=== PATIENT | female | born 1935 | race Two or more races ===

== ENCOUNTER 2017-04-12 15:57 | Emergency (ER) | payer MEDICARE, OTHER ==
[~2017-04-12] VITALS: Ht 160 cm; Wt 115.2 kg
[~2017-04-12 15:57] MED LIST: CANA300T PO; CYAN10009 PO; FLUO-120 PO; GABA-532 PO; OMEP20TA20 PO; PRAV40TA PO; SERT100T PO; SUMA100T16 PO; VALS80TA2 PO
[2017-04-12] MEDS ORDERED: HYDROCODONE/APAP 5-325MG TABLET PO ONE (17:15)
--- NOTE | 2017-04-12 17:15 | NUR ---
Patient discharged to home in stable conditon. Written and verbal after care instructions given. Patient verbalizes understanding of instructions.
[2017-04-12 17:16] VITALS: BP 139/74
== END 2017-04-12 17:20 | disposition home or self-care (01) ==
LOC: ER 16:00
DX: S20.212A Contusion of left front wall of thorax, initial encounter (principal); E11.9 Type 2 diabetes mellitus without complications; F32.9 Major depressive disorder, single episode, unspecified; I10 Essential (primary) hypertension; K21.9 Gastro-esophageal reflux disease without esophagitis; Z79.899 Other long term (current) drug therapy; W01.0XXA Fall on same level from slipping, tripping and stumbling without subsequent striking against object, initial encounter; Y93.89 Activity, other specified; Y92.481 Parking lot as the place of occurrence of the external cause; Y99.8 Other external cause status
CPT/HCPCS: 71020; A4663

== ENCOUNTER 2018-01-28 19:51 | Emergency (ER) | payer MEDICARE, OTHER ==
[~2018-01-28] VITALS: Ht 157.5 cm; Wt 68.0 kg
[2018-01-28] MEDS ORDERED: ALBUTEROL SULFATE 2.5 MG/3 ML NEBU NEB ONE (20:45)
[2018-01-28 21:23] LABS: *BILIRUBIN,URIN NEGATIVE (NEGATIVE); *BLOOD, URINE NEGATIVE (NEGATIVE); *CLARITY,URINE SLIGHTLY CLOUDY (CLEAR); *COLOR,URINE YELLOW (YELLOW); *KETONES,URINE NEGATIVE (NEGATIVE); *PROTEIN,URINE TRACE (NEGATIVE); *UROBILINOGEN,URINE 0.2 E.U./dl (NORMAL); LEUKOCYTE ESTERASE ,URINE NEGATIVE (NEGATIVE); NITRITE, URINE NEGATIVE (NEGATIVE); UGLUCOSE NEGATIVE (NEGATIVE)
[2018-01-28] MEDS ORDERED: ALBUTEROL SULFATE 2.5 MG/3 ML NEBU ONE (21:24)
[2018-01-28 21:25] LABS: RBC,URINE 0-3 /HPF (0-3)
[2018-01-28 21:26] LABS: BACTERIA,URINE RARE /HPF (NONE SEEN); SQUAMOUS EPITHELIAL CELL,UR FEW /HPF (NONE SEEN)
[2018-01-28 21:29] LABS: BASOPHILS % (AUTO) 0.8 % (0.0-2.0); EOSINOPHILS # (AUTO) 0.1 K/uL (0.0-0.7); EOSINOPHILS % (AUTO) 1.6 % (0.0-7.0); HEMATOCRIT 43.2 % (31.2-41.9); LYMPHOCYTES # (AUTO) 0.9 K/uL (20.0-40.0); LYMPHOCYTES % (AUTO) 19.6 % (20.5-51.5); MEAN CORPUSCULAR HEMOGLOBIN 31.1 uug (24.7-32.8); MEAN CORPUSCULAR HGB CONC 35 g/dL (32.3-35.6); MONOCYTES # (AUTO) 0.5 K/uL (2.0-10.0); MONOCYTES % (AUTO) 10.5 % (0.0-11.0); NEUTROPHILS # (AUTO) 3.1 K/uL (1.8-8.9); NEUTROPHILS % (AUTO) 67.5 % (38.5-71.5); PLATELET COUNT (AUTO) 196 K/uL (179-408); WHITE BLOOD COUNT (AUTO) 4.6 K/uL (3.8-11.8)
[2018-01-28] MEDS ORDERED: ACETAMINOPHEN ES 500 MG TABLET PO ONE (21:45)
[2018-01-28 21:46] LABS: CARBON DIOXIDE 30 mmol/L (21-32); CHLORIDE 104 mmol/L (98-107); CREATININE 0.8 mg/dL (0.6-1.3); GLUCOSE 106 mg/dL (74-106); POTASSIUM 4.3 mmol/L (3.5-5.1); UREA NITROGEN, BLOOD 12 mg/dL (7-18)
[2018-01-28] MEDS ORDERED: ACETAMINOPHEN ES 500 MG TABLET ONE (21:48)
[2018-01-28 21:50] LABS: ALANINE AMINOTRANSFERASE 24 U/L (14-59); ALKALINE PHOSPHATASE 48 U/L (50-136); ASPARTATE AMINOTRANSFERASE 20 U/L (15-37); BILIRUBIN,DIRECT 0.2 mg/dL (0.0-0.2); BILIRUBIN,TOTAL 0.8 mg/dL (0.2-1.0); TOTAL PROTEIN, SERUM 7.3 g/dL (6.4-8.2)
[2018-01-28] MEDS ORDERED: CEFTRIAXONE 1 G in IV DEXTROSE 5% 50 ML IV ONE (22:00)
[2018-01-28] MEDS ORDERED: CEFTRIAXONE 1 G VIAL ONE (22:03)
[2018-01-28] MEDS ORDERED: BENZONATATE 100 MG CAPSULE PO ONE (22:15)
[2018-01-28] MEDS ORDERED: BENZONATATE 100 MG CAPSULE ONE (22:26)
[2018-01-28 22:50] VITALS: BP 154/86
--- NOTE | 2018-01-28 22:51 | NUR ---
Patient discharged to home in stable conditon. Written and verbal after care instructions given. Patient verbalizes understanding of instructions. IV removed. Catheter intact and site benign. Pressure and 4x4 gauze applied to site. No bleeding noted. Patient left ER in steady gait with family. All belongings with pt. No acute distress noted. VSS.
== END 2018-01-28 22:51 | disposition home or self-care (01) ==
LOC: ER 19:53
DX: J20.8 Acute bronchitis due to other specified organisms (principal); B96.89 Other specified bacterial agents as the cause of diseases classified elsewhere; I10 Essential (primary) hypertension; K21.9 Gastro-esophageal reflux disease without esophagitis; E11.9 Type 2 diabetes mellitus without complications; Z90.710 Acquired absence of both cervix and uterus; Z88.8 Allergy status to other drugs, medicaments and biological substances; Z79.899 Other long term (current) drug therapy
CPT/HCPCS: 36415; 71045; 80048; 80076; 81001; 83605; 83880; 84484; 85025; 85730; 86403; 87040 ×2; 87070; 87086; 93005; 94640; 96365; 99285; A4663; A9150; J0696; J7060; 70030-TC

== ENCOUNTER 2021-02-23 01:26 | Emergency (ER) | payer MEDICARE, OTHER ==
[~2021-02-23] VITALS: Ht 170.2 cm; Wt 62.6 kg
[~2021-02-23 01:26] MED LIST changes: +CYAN-51 PO; -CYAN10009 PO; -FLUO-120 PO; +FLUO20CA42 PO
--- NOTE | 2021-02-23 02:00 | NUR ---
MD Edwards in room to do MSE.
[2021-02-23] MEDS ORDERED: KETOROLAC TROMETHAMINE 30 MG INJ IM ONE (02:15)
[2021-02-23] MEDS ORDERED: KETOROLAC TROMETHAMINE 30 MG INJ ONE (02:15)
--- NOTE | 2021-02-23 02:22 | NUR ---
Patient taken by tool and die technician out to CT scan.
[2021-02-23 02:29] LABS: *BILIRUBIN,URIN NEGATIVE (NEGATIVE); *BLOOD, URINE NEGATIVE (NEGATIVE); *CLARITY,URINE CLEAR (CLEAR); *COLOR,URINE YELLOW (YELLOW); *KETONES,URINE NEGATIVE (NEGATIVE); *UROBILINOGEN,URINE 0.2 E.U./dl (NORMAL); LEUKOCYTE ESTERASE ,URINE TRACE (NEGATIVE); NITRITE, URINE NEGATIVE (NEGATIVE); PH,URINE 5.5 (5.0-8.0); UGLUCOSE NEGATIVE (NEGATIVE)
[2021-02-23 02:29] LABS: HEMATOCRIT 40.3 % (31.2-41.9); MEAN CORPUSCULAR VOLUME 92.9 fL (75.5-95.3); PLATELET COUNT (AUTO) 231 K/uL (179-408)
[2021-02-23 02:38] LABS: BACTERIA,URINE NONE SEEN /HPF (NONE SEEN); RBC,URINE 0-3 /HPF (0-3); SQUAMOUS EPITHELIAL CELL,UR MODERATE /HPF (NONE SEEN)
[2021-02-23 02:40] LABS: BILIRUBIN,TOTAL 0.6 mg/dL (0.2-1.0); CREATININE 0.7 mg/dL (0.6-1.3); POTASSIUM 4.2 mmol/L (3.5-5.1); TOTAL PROTEIN, SERUM 6.7 g/dL (6.4-8.2)
[2021-02-23] MEDS ORDERED: ACET1TAB23 PO (03:58)
--- NOTE | 2021-02-23 04:08 | NUR ---
Patient discharged to home in stable condition. Written and verbal after care instructions given. Patient verbalizes understanding of instructions. Stressed follow up or return to ER for worsening s/s. A/O x4, no SOB or labored breathing. Steady gait. Denies any pain/discomfort at this time.
[2021-02-23 04:09] VITALS: BP 133/69
== END 2021-02-23 04:10 | disposition home or self-care (01) ==
LOC: ER 01:31
DX: M25.551 Pain in right hip (principal); M51.36 Other intervertebral disc degeneration, lumbar region; M48.061 Spinal stenosis, lumbar region without neurogenic claudication; R63.4 Abnormal weight loss; Z68.21 Body mass index [BMI] 21.0-21.9, adult; I10 Essential (primary) hypertension; E11.9 Type 2 diabetes mellitus without complications; F32.9 Major depressive disorder, single episode, unspecified; Z79.899 Other long term (current) drug therapy
CPT/HCPCS: 36415; 72128; 72131; 72192; 80053; 81001; 85025; 96372; 99285; J1885; A4663

== ENCOUNTER 2022-10-21 20:59 | Inpatient (IN) | payer MEDICARE, OTHER ==
[~2022-10-21] VITALS: Ht 162.6 cm; Wt 74.4 kg
[~2022-10-21 20:59] MED LIST changes: +ACET1TAB23 PO
[2022-10-21] MEDS ORDERED: FAMOTIDINE. 20 MG/2 ML VIAL IV ONE ×2 (21:45→22:08)
[2022-10-21] MEDS ORDERED: ONDANSETRON 4 MG/2 ML VIAL IV ONE (21:45)
[2022-10-21] MEDS ORDERED: IV NORMAL SALINE 1000 ML BAG IV ONE (21:45)
[2022-10-21] MEDS ORDERED: MORPHINE SULFATE 2 MG/1 ML DISP.SYRIN IV ONE (21:45)
--- NOTE | 2022-10-21 21:50 | NUR ---
Patient a/o x 4. NAD noted. Ambulatory with a steady gait.
[2022-10-21] MEDS ORDERED: ONDANSETRON 4 MG/2 ML VIAL ONE (22:07)
[2022-10-21] MEDS ORDERED: MORPHINE SULFATE 2 MG/1 ML DISP.SYRIN ONE (22:08)
[2022-10-21 22:09] LABS: HEMATOCRIT 43.2 % (31.2-41.9); MEAN CORPUSCULAR HEMOGLOBIN 31.7 uug (24.7-32.8); MEAN CORPUSCULAR VOLUME 93.8 fL (75.5-95.3); PLATELET COUNT (AUTO) 223 K/uL (179-408)
--- NOTE | 2022-10-21 22:10 | NUR ---
Patient going down for CT.
--- NOTE | 2022-10-21 22:15 | NUR ---
Patient refused morphine 2mg and zofran 4mg via IV, Dr. Edwards notified.
[2022-10-21 22:32] LABS: CARBON DIOXIDE 30 mmol/L (21-32); CHLORIDE 102 mmol/L (98-107); CREATININE 0.7 mg/dL (0.6-1.3); GLUCOSE 94 mg/dL (74-106); UREA NITROGEN, BLOOD 14 mg/dL (7-18)
[2022-10-21 22:37] LABS: ALANINE AMINOTRANSFERASE 28 U/L (14-59); ALKALINE PHOSPHATASE 60 U/L (50-136); ASPARTATE AMINOTRANSFERASE 27 U/L (15-37); BILIRUBIN,DIRECT 0.2 mg/dL (0.0-0.2); BILIRUBIN,TOTAL 0.9 mg/dL (0.2-1.0); LIPASE 2026 U/L (73-393); TOTAL PROTEIN, SERUM 7.1 g/dL (6.4-8.2)
[2022-10-22 00:20] LABS: *BILIRUBIN,URIN NEGATIVE (NEGATIVE); *BLOOD, URINE NEGATIVE (NEGATIVE); *CLARITY,URINE CLEAR (CLEAR); *COLOR,URINE YELLOW (YELLOW); *KETONES,URINE NEGATIVE (NEGATIVE); *UROBILINOGEN,URINE 0.2 E.U./dl (NORMAL); LEUKOCYTE ESTERASE ,URINE TRACE (NEGATIVE); NITRITE, URINE NEGATIVE (NEGATIVE); PH,URINE 5.5 (5.0-8.0); UGLUCOSE NEGATIVE (NEGATIVE)
[2022-10-22 00:26] LABS: WBC,URINE NONE SEEN /HPF (0-3)
[2022-10-22 00:30] LABS: BACTERIA,URINE NONE SEEN /HPF (NONE SEEN); SQUAMOUS EPITHELIAL CELL,UR FEW /HPF (NONE SEEN)
[2022-10-22] MEDS ORDERED: MORPHINE SULFATE 2 MG/1 ML DISP.SYRIN IVP PRN (01:30)
[2022-10-22] MEDS ORDERED: ACETAMINOPHEN 325 MG TABLET PO PRN (01:30)
[2022-10-22] MEDS ORDERED: hydrALAZINE HCL 20 MG/1 ML VIAL IV PRN (01:30)
[2022-10-22] MEDS ORDERED: ONDANSETRON 4 MG/2 ML VIAL IV PRN (01:30)
--- NOTE | 2022-10-22 02:00 | NUR ---
Patient awake. NAD noted. Seen ambulating to restroom.
[2022-10-22] MEDS ORDERED: DONE5TAB34 PO (04:18)
[2022-10-22] MEDS ORDERED: TRAZ-182 PO (04:18)
[2022-10-22] MEDS ORDERED: CALC0.5C11 PO (04:18)
[2022-10-22] MEDS ORDERED: TRAZODONE 50 MG TABLET ONE (04:40)
[2022-10-22] MEDS ORDERED: TRAZODONE 50 MG TABLET PO ONE (04:45)
--- NOTE | 2022-10-22 04:56 | NUR ---
Report given to IRMA Combs.
--- NOTE | 2022-10-22 05:30 | NUR ---
Pt. admitted to tele rm [id number], under care of Dr. Mari Belongs List completed IRMA Combs aware of patient's arrival.
[2022-10-22 06:11] VITALS: BP 149/53
[2022-10-22 08:00] VITALS: BP 115/75
[2022-10-22] MEDS: FLUOXETINE HCL 10 MG CAPSULE PO SCH (09:26)
[2022-10-22] MEDS: HEPARIN SODIUM,PORCINE 5,000 UNITS/ML VIAL SQ SCH ×2 (09:30→17:56)
[2022-10-22] MEDS: CEFEPIME HCL 1 G in IV DEXTROSE 5% 50 ML IV SCH ×3 (10:07→23:24)
[2022-10-22] MEDS: VALSARTAN 80 MG TABLET PO SCH (10:08)
[2022-10-22] MEDS: IV NS 1000 ML 1,000 ML IV SCH ×2 (16:30→21:40)
--- NOTE | 2022-10-22 19:08 | NUR ---
SHIFT NOTE ; PT IS ALERT AND ORIENTED X4 PATIENT AND FAMILY MEMBERT AT BED SIDE. PT WAS SEEN BY DR ROSADO AND HE ORDERED PT DIET CHANGED TO CLEAR LIQUIDS. AND NO SIGNS OF DISTRESS NOTED. DR. ROSADO EXPLAINED THAT LIPASE IS TRIPLING DOWN RAPIDLY SHE MAY STAY IN HOSPITAL FOR ANOTHER NIGHT POSSIBLE DISCHARGE IN AM. NO SIGNS OF DISTRESSED NOTED PATIENT DENIES PAIN AND SINUS RHYTHM ON THE MONITOR FALL AND SAFETY MAINTAINED. WILL ENDORSE TO HS NURSE.
[2022-10-22 20:00] VITALS: BP 110/53
[2022-10-22] MEDS ORDERED: ATORVASTATIN 10 MG TABLET PO SCH (21:00)
[2022-10-22] MEDS ORDERED: GABAPENTIN 100 MG CAPSULE PO SCH (21:00)
[2022-10-23] VITALS: BP 100/52
[2022-10-23] MEDS: IV NS 1000 ML 1,000 ML IV SCH ×3 (02:30→13:30)
[2022-10-23 04:00] VITALS: BP 143/60
--- NOTE | 2022-10-23 06:31 | NUR ---
patient slept well throughout the shift. remained stable. no sob or resp distress noted. v/s wnl. ATB given via RFA iv line # 20g. no adverse reaction noted. all needs met and attended
[2022-10-23] MEDS ORDERED: PANTOPRAZOLE SODIUM 40 MG TABLET.DR PO SCH (07:00)
[2022-10-23 07:22] LABS: HEMATOCRIT 35.6 % (31.2-41.9); MEAN CORPUSCULAR HEMOGLOBIN 31.8 uug (24.7-32.8); PLATELET COUNT (AUTO) 166 K/uL (179-408)
[2022-10-23 07:48] LABS: BILIRUBIN,TOTAL 0.8 mg/dL (0.2-1.0); CREATININE 0.7 mg/dL (0.6-1.3); PHOSPHOROUS 3.6 mg/dL (2.5-4.9); POTASSIUM 3.6 mmol/L (3.5-5.1); TOTAL PROTEIN, SERUM 5.4 g/dL (6.4-8.2)
[2022-10-23] MEDS: CEFEPIME HCL 1 G in IV DEXTROSE 5% 50 ML IV SCH ×2 (08:23→15:30)
[2022-10-23] MEDS: HEPARIN SODIUM,PORCINE 5,000 UNITS/ML VIAL SQ SCH (09:05)
[2022-10-23] MEDS: FLUOXETINE HCL 10 MG CAPSULE PO SCH (09:06)
[2022-10-23] MEDS: VALSARTAN 80 MG TABLET PO SCH (09:06)
[2022-10-23 11:23] VITALS: BP 112/48
[2022-10-23 16:31] VITALS: BP 129/56
--- NOTE | 2022-10-23 16:42 | NUR ---
Discharge instructions explained to patient and about following up with PMD. All questions answered for the patient. Personal belongings reconciled with patient and sent home with her. IV site clean dry with no s/s of infiltration or phlebitits noted. Site discontinued. Pt is awaiting arrival of family for discharge home by WC.
== END 2022-10-23 17:10 | disposition home or self-care (01) | DRG 440 ==
LOC: ER 21:01 → TELE3 10-22 05:24
PROVIDERS: ADMIT Internal Medicine
DX: K85.10 Biliary acute pancreatitis without necrosis or infection (principal); K21.9 Gastro-esophageal reflux disease without esophagitis; E78.5 Hyperlipidemia, unspecified; F32.A Depression, unspecified; I10 Essential (primary) hypertension; Z86.39 Personal history of other endocrine, nutritional and metabolic disease; K52.9 Noninfective gastroenteritis and colitis, unspecified; Z20.822 Contact with and (suspected) exposure to COVID-19; Z90.710 Acquired absence of both cervix and uterus; Z79.899 Other long term (current) drug therapy
CPT/HCPCS: 36415; 83605; 83690; 84100; 84484; 85025; 87040; 93005; A4663; G0378; J0692; J1644; J2270; J2405; J3490; J7040

== ENCOUNTER 2023-07-31 17:19 | Emergency (ER) | payer MEDICARE, OTHER ==
[~2023-07-31] VITALS: Ht 157.5 cm; Wt 71.7 kg
[~2023-07-31 17:19] MED LIST changes: +CALC0.5C11 PO; +DONE5TAB34 PO; +TRAZ-182 PO
[2023-07-31] MEDS ORDERED: HYDROCODONE/APAP 5-325MG TABLET PO ONE (18:45)
[2023-07-31] MEDS ORDERED: HYDROCODONE/APAP 5-325MG TABLET ONE (19:14)
[2023-07-31] MEDS ORDERED: TRAM50TA2 PO (19:42)
[2023-07-31 19:56] VITALS: BP 108/70; TEMP 99; O2SAT 99
== END 2023-07-31 19:57 | disposition home or self-care (01) ==
LOC: ER 17:19
DX: S40.022A Contusion of left upper arm, initial encounter (principal); S80.02XA Contusion of left knee, initial encounter; S70.02XA Contusion of left hip, initial encounter; R07.89 Other chest pain; I10 Essential (primary) hypertension; K21.9 Gastro-esophageal reflux disease without esophagitis; E11.9 Type 2 diabetes mellitus without complications; Z90.710 Acquired absence of both cervix and uterus; Z88.8 Allergy status to other drugs, medicaments and biological substances; Z79.899 Other long term (current) drug therapy; W01.0XXA Fall on same level from slipping, tripping and stumbling without subsequent striking against object, initial encounter; Y93.89 Activity, other specified; Y92.89 Other specified places as the place of occurrence of the external cause; Y99.8 Other external cause status
CPT/HCPCS: 71045; 73060; 73502; A4606; A4663

== ENCOUNTER 2024-03-26 11:54 | Emergency (ER) | payer MEDICARE, OTHER ==
[~2024-03-26] VITALS: Ht 154.9 cm; Wt 74.8 kg
[~2024-03-26 11:54] MED LIST changes: +TRAM50TA2 PO
[2024-03-26] MEDS ORDERED: HYDROCODONE/APAP 5-325MG TABLET ONE (14:03)
[2024-03-26] MEDS: HYDROCODONE/APAP 5-325MG TABLET PO ONE (14:03)
[2024-03-26] MEDS: OXYCODONE/APAP 5-325 MG TABLET PO ONE (14:09)
[2024-03-26] MEDS ORDERED: HYDR-3980 PO (15:13)
[2024-03-26 15:32] VITALS: BP 123/69; O2SAT 95
== END 2024-03-26 15:22 | disposition home or self-care (01) ==
LOC: ER 11:54
DX: S40.012A Contusion of left shoulder, initial encounter (principal); S09.8XXA Other specified injuries of head, initial encounter; I10 Essential (primary) hypertension; K21.9 Gastro-esophageal reflux disease without esophagitis; E11.9 Type 2 diabetes mellitus without complications; Z98.890 Other specified postprocedural states; Z90.49 Acquired absence of other specified parts of digestive tract; Z79.1 Long term (current) use of non-steroidal anti-inflammatories (NSAID); Z79.891 Long term (current) use of opiate analgesic; Z79.899 Other long term (current) drug therapy; Z88.1 Allergy status to other antibiotic agents; W18.39XA Other fall on same level, initial encounter; Y93.89 Activity, other specified; Y92.091 Bathroom in other non-institutional residence as the place of occurrence of the external cause; Y99.8 Other external cause status
CPT/HCPCS: 70450; 71101; 73030; A4606; A4663